=== PATIENT | male | born 1985 | race Caucasian/White ===

== ENCOUNTER 2019-09-17 15:12 | Emergency (ER) | payer MEDICAID ==
[~2019-09-17] VITALS: Ht 175.3 cm; Wt 81.8 kg
[2019-09-17 15:20] VITALS: Ht 175.3 cm; Wt 81.8 kg
[2019-09-17] MEDS ORDERED: MINIPRESS1 MG PO (15:26)
[2019-09-17] MEDS ORDERED: LOPRESSOR25 MG PO (15:27)
[2019-09-17] MEDS ORDERED: PROPRANOLOL HCL20 MG PO (15:28)
[2019-09-17] MEDS ORDERED: OMEPRAZOLE40 MG PO (15:28)
[2019-09-17] MEDS ORDERED: SINEQUAN25 MG PO (15:28)
[2019-09-17] MEDS ORDERED: ZOLOFT100 MG PO (15:29)
[2019-09-17] MEDS ORDERED: NICORETTE2 MG PO (15:30)
[2019-09-17] MEDS ORDERED: NICORETTE4 M1 PO (15:30)
[2019-09-17] MEDS ORDERED: TEGRETOL XR100 MG PO (16:07)
[2019-09-17] MEDS ORDERED: TOPROL XL50 MG PO (16:09)
[2019-09-17 16:21] LABS: BASOPHILS 0.1 % (0-2); EOSINOPHILS 0.9 % (0-7); HEMOGLOBIN 14.6 g/dL (13.5-17.5); IMMATURE GRANULOCYTES 0.3 % (0-5); LYMPHOCYTES 5.7 % (15-50); MCH 25.2 pg (26.0-34.0); MCHC 32.4 g/dL (31.0-37.0); MCV 77.7 fL (80.0-100.0); MEAN PLATELET VOLUME 9.3 fL (7.4-10.4); MONOCYTES 6.9 % (2-11); NEUTROPHILS 86.1 % (40-80); PLATELET COUNT 355 10x3/uL (130-400); RBC 5.79 10x6/uL (4.20-6.10); RDW 16.5 % (11.5-14.5); WBC 11.1 10x3/uL (4.8-10.8)
[2019-09-17 16:23] LABS: CALC OSMOLALITY 273 mosm/kg (275-300); CALCIUM 9.1 mg/dL (8.5-10.1); CHLORIDE - SERUM 103 mmol/L (98-107); CREATININE - SERUM 0.9 mg/dL (0.6-1.3); GLUCOSE 105 mg/dL (74-106); POTASSIUM - SERUM 4.5 mmol/L (3.5-5.1); SODIUM 138 mmol/L (136-145); UREA NITROGEN 6 mg/dL (7-18); eGFR NON AFRICAN AMERICAN > 90 mL/min (90-120)
[2019-09-17 16:29] LABS: ALBUMIN 4.3 g/dL (3.4-5.0); ALKALINE PHOSPHATASE 74 U/L (30-120); ALT (SGPT) 30 U/L (10-68); BILIRUBIN - TOTAL 0.39 mg/dL (0.2-1.3); MAGNESIUM - SERUM 2.1 mg/dL (1.8-2.4); PROTEIN - SERUM 7.8 g/dL (6.4-8.2)
[2019-09-17] MEDS ORDERED: LIBRIUM 10 MG C10 MG PO (16:31)
[2019-09-17] MEDS ORDERED: NORVASC5 MG PO (17:16)
[2019-09-17] MEDS ORDERED: CATAPRES0.1 MG PO (17:21)
[2019-09-17] MEDS ORDERED: CATAPRES0.2 MG PO (18:56)
--- NOTE | 2019-09-17 21:22 | NUR ---
PATIENT IS HERE FOR A SEIZURE AND BROUGHT HERE FROM [place], HE DENIES BEING SUICIDIAL. HE LISTS REASONS FOR WANTING TO LIVE, HE IS CURRENTLY CONSIDERING [employer]. [phone] NUMBER GIVEN FOR FUTUTRE REFERENCE.
[2019-09-17 22:01] VITALS: BP 144/97
== END 2019-09-17 22:01 | disposition home or self-care (01) ==
LOC: D.ER 15:12
PROVIDERS: Emergency Medicine
DX: G40.89 Other seizures (principal); F10.230 Alcohol dependence with withdrawal, uncomplicated; I10 Essential (primary) hypertension; K21.9 Gastro-esophageal reflux disease without esophagitis; Z72.0 Tobacco use